=== PATIENT | female | born 2000 | race Caucasian/White ===

== ENCOUNTER 2024-12-19 07:50 | Emergency (ER) | payer SELFPAY ==
[~2024-12-19] VITALS: Ht 154.9 cm; Wt 42.0 kg
[2024-12-19 07:50] VITALS: PULSE 88; RESP 14; TEMP 97.2; O2SAT 98
--- NOTE | 2024-12-19 08:00 | ED.PDOC ---
Altered Mental Status HPI Comments 24 year old female presents to the ED via EMS with a chief complaint of overdose onset today (12/19/24). Per EMS, patient is a Sangita Pacheco, no personal information is known, patient was found outside of [address] [place] [id number], unresponsive, workers believe patient overdosed. Upon EMS arrival, patient was unresponsive with agonal b reathing, Narcan 2mg IM and 0.5mg Narcan IV was given in route to ED. BG was 355, BP 110/72. Upon ED arrival, patient is responding, altered Poor historian. No other symptoms or modifying factors present at this time. Chief Complaint: Overdose Time Seen by MD: 07:50 Reviewed Notes: Medications, Allergies Allergies: Coded Allergies: UNOBTAINABLE (Unverified , 12/19/24) Information Source: Emergency Med Personnel Mode of Arrival: EMS Severity: Moderate Timing: Hours Duration: Since onset Prehospital treatment: Other (Narcan 2.5 mg) Recent: Medication/Drug Abuse Past Medical History PAST MEDICAL HISTORY: Unknown Surgical History: Unknown TELE TECH History: Unknown Family History Family History: Unknown Social History Smoker: Unknown Alcohol: Unknown Drugs: Unknown Lives In: Unknown Unable to Obtain due to: Altered Mental Status Physical Exam General Appearance: Normal HEENT: Normal ENT Inspection, Pharynx Normal, TMs Normal Neck: Full Range of Motion, Non-Tender, Normal, Normal Inspection Respiratory: Chest Non-Tender, Lungs Clear, No Accessory Muscle Use, No Respiratory Distress, Normal Breath Sounds Cardiovascular: No Edema, No JVD, No Murmur, No Gallop, Normal Peripheral Pu lses, Regular Rate/Rhythm Breast Exam: Deferred Gastrointestinal: No Organomegaly, Non Tender, No Pulsatile Mass, Normal Bowel Sounds, Soft Genitalia: Deferred Pelvic: Deferred Rectal: Deferred Extremities: No calf tenderness, Normal capillary refill, Normal inspection, Normal range of motion, Non-tender, No pedal edema Musculoskeletal : Apperance: Normal Neurologic: No Motor Deficits Cerebellar Function: Normal Reflexes: Normal Skin: Dry, Normal Color, Warm Lymphatic: No Adenopathy Was a procedure done? Was a procedure done?: No Differential Diagnosis (ALOC) Differential Diagnosis: Dehydration, Drug Overdose, ETOH Intoxication X-Ray, Labs, Meds, VS Vital Signs Date Time Temp Pulse Resp B/P (MAP) Pulse Ox O2 Delivery O2 Flow Rate FiO2 12/19/24 10:00 75 14 100/60 (73) 93 12/19/24 08:01 88 14 105/68 (80) 98 12/19/24 08:00 94 12/19/24 07:50 88 14 98 Room Air* 0 21 12/19/24 07:50 97.2 90 14 163/137 98 97.2 Current Medications Medications (Trade) Dose Ordered Sig/Melida Route Start Time Stop Time Status Last Admin Naloxone HCl (Narcan) 2 mg ONCE ONCE IV 12/19/24 08:00 12/19/24 08:01 DC 12/19/24 08:01 Time of 1ST Reevaluation: 08:20 Reevaluation 1ST: Unchanged Patient Education/Counseling: Other Family Education/Counseling: No Family Present SEPSIS Sepsis Screen Vital Signs Date Time Temp Pulse Resp B/P (MAP) Pulse Ox O2 Delivery O2 Flow Rate FiO2 12/19/24 10:00 75 14 100/60 (73) 93 12/19/24 08:01 88 14 105/68 (80) 98 12/19/24 08:00 94 12/19/24 07:50 88 14 98 Room Air* 0 21 12/19/24 07:50 97.2 90 14 163/137 98 97.2 Medications Medications Dose Ordered Sig/Melida Route Start Time Stop Time Status Last Admin Dose Admin Naloxone HCl 2 mg ONCE ONCE IV 12/19/24 08:00 12/19/24 08:01 DC 12/19/24 08:01 Departure 1 Departure Time of Disposition: 10:51 (Patient received Narcan and is now need x4. Patient has signed out AMA) Impression: Primary Impression: Opiate overdose Disposition: LEFT AGAINST MEDICAL ADVICE Condition: Stable Critical Care Note Critical Care Time?: No Stability Stability form required: No Heart Score Heart Score: Heart Score Response (Comments) Value History N/A 0 EKG N/A 0 Age N/A 0 Risk Factors N/A 0 Troponin N/A 0 Total 0 I personally scribed for CRISTINA PATEL MD ([email or web address]) on 12/19/24 at 08:00. Electronically submitted by Irais Almanza ([email or web address]). CRISTINA PATEL MD Dec 19, 2024 08:00
[2024-12-19] MEDS: NALOXONE HCL 1MG/ML 2ML SYRINGE IV ONE (08:01)
[2024-12-19] MEDS: NALOXONE HCL 1MG/ML 2ML SYRINGE ONE (08:07)
[2024-12-19 10:00] VITALS: BP 100/60; PULSE 75; RESP 14; O2SAT 93
== END 2024-12-19 10:47 | disposition left against medical advice (07) ==
LOC: EDBD 07:50 → ER 07:50
DX: T50.7X1A Poisoning by analeptics and opioid receptor antagonists, accidental (unintentional), initial encounter (principal); Y92.89 Other specified places as the place of occurrence of the external cause; F17.200 Nicotine dependence, unspecified, uncomplicated; R41.82 Altered mental status, unspecified
CPT/HCPCS: 96374; 99283; J2312